=== PATIENT | male | born 1990 | race Caucasian/White ===

== ENCOUNTER 2023-05-10 10:04 | Observation (INO) ==
[~2023-05-10 10:04] MED LIST: Buffered Lidocaine 1% SYRIN 1 ml INTRADERM ONE; HYDROmorphone 1 MG/1 ML SYRINGE IV PRN; Lactated Ringers 1000 ml BAG 1,000 ML IV SCH; Naloxone 0.4 mg VIAL 0.4 mg/ml 1 ml VIAL IV PRN; Prochlorperazine 5 mg/ml 2 ml VIAL (10 mg) IV PRN
[2023-05-10] MEDS ORDERED: ceFAZolin 2 GM in NS PREMIX 2 GM/100 ML BAG IVPB ONE (10:20)
[2023-05-10] MEDS ORDERED: Dexamethasone IV 4 MG/ML VIAL 1 ml VIAL ONE (10:28)
[2023-05-10] MEDS ORDERED: Ondansetron 4 mg VIAL 2 MG/ML 2 ml VIAL ONE (10:28)
[2023-05-10] MEDS ORDERED: Propofol 10 MG/ML 20 ML BTL ONE (10:28)
[2023-05-10] MEDS ORDERED: Acetaminophen IV 1 GM/100ML 1,000 MG/100 ML BAG IV ONE (10:28)
[2023-05-10] MEDS ORDERED: Metoclopramide 5 MG/ML VIAL (10 mg) ONE (10:28)
[2023-05-10] MEDS ORDERED: Rocuronium 50 mg VIAL 10 mg/ml 5 ml VIAL (50 mg) ONE (10:29)
[2023-05-10] MEDS ORDERED: fentaNYL 250 mcg/5 ml 50 MCG/ML 5 ml VIAL (250 MCG) ONE (10:29)
[2023-05-10] MEDS ORDERED: HYDROmorphone 0.5 MG/0.5 ML SYRINGE ONE (10:29)
[2023-05-10] MEDS ORDERED: Midazolam 2 mg/2 ml VIAL 1 mg/ml 2 ml VIAL (2 mg) ONE (10:29)
[2023-05-10 10:58] LABS: Rapid COVID-19 Molecular Undetected (Undetected)
[2023-05-10] MEDS ORDERED: Bupivacaine 0.25% EPI 200,000 30 ML SDV ONE (11:03)
[2023-05-10] MEDS ORDERED: Ondansetron 4 mg VIAL 2 MG/ML 2 ml VIAL IV PRN (16:15)
[2023-05-10] MEDS ORDERED: Fluticasone NASAL SPRAY 50MCG 16 gm SPRAY BTL INTRANASAL PRN (16:20)
[2023-05-10] MEDS ORDERED: Albuterol HFA INHALER 8 gm MDI INH PRN (16:20)
[2023-05-10] MEDS ORDERED: fentaNYL 100 mcg/2 ml 50 MCG/ML VIAL ONE (16:22)
[2023-05-10] MEDS ORDERED: HYDROmorphone 0.5 MG/0.5 ML SYRINGE IV SLOW PU PRN (16:24)
[2023-05-10] MEDS: fentaNYL 100 mcg/2 ml 50 MCG/ML VIAL IV PRN ×2 (16:29→16:38)
[2023-05-10] MEDS: Acetaminophen IV 1 GM/100ML 1,000 MG/100 ML BAG IV SCH ×2 (18:00→21:46)
[2023-05-10] MEDS ORDERED: Prochlorperazine 5 mg/ml 2 ml VIAL (10 mg) IV PRN (21:41)
[2023-05-11] MEDS: Acetaminophen IV 1 GM/100ML 1,000 MG/100 ML BAG IV SCH (04:17)
[2023-05-11 06:10] VITALS: BP 114/61
[2023-05-11 07:32] LABS: Hematocrit 38.9 % (38-53); Hemoglobin 13.4 g/dL (13.2-16.3); Mean Corpuscular Hemoglobin 29.5 pg (27-33); Mean Corpuscular Hgb Conc 34.4 g/dL (31-36); Mean Corpuscular Volume 85.7 fL (80-97); Mean Platelet Volume 8.6 fL (7.5-11.2); Platelet Count 252 10^3/uL (150-450); Red Blood Count 4.54 10^6/uL (4.06-5.63); Red Cell Distribution Width 13.8 % (12-17)
[2023-05-11 09:23] LABS: ABS Lymphocytes 1.5 10^3/uL (1.0-4.8); ABS Monocytes 2.6 10^3/uL (0.0-1.1); ABS Neutrophils 12.9 10^3/uL (1.5-7.6); Eosinophil % 0.1 %; Lymphocyte % 8.8 %
== END 2023-05-11 11:39 | disposition home or self-care (01) ==
LOC: SSU 10:04 → OR 10:04
PROVIDERS: ADMIT Surgery; ATTEND Surgery